=== PATIENT | female | born 1995 | race African-American/Black ===

== ENCOUNTER 2016-07-08 20:30 | Emergency (ER) | payer MEDICAID ==
[~2016-07-08] VITALS: Ht 162.6 cm; Wt 74.5 kg
[2016-07-08 20:39] VITALS: BP 121/73
[2016-07-08] MEDS ORDERED: CLINDAMYCIN 300 MG CAPSULE PO ONE (22:30)
== END 2016-07-08 22:26 | disposition home or self-care (01) ==
LOC: ED 22:20
DX: K04.6 Periapical abscess with sinus (principal); K08.89 Other specified disorders of teeth and supporting structures; Z88.0 Allergy status to penicillin
CPT/HCPCS: 99283